=== PATIENT | male | born 1970 | race Caucasian/White ===

== ENCOUNTER 2019-05-12 22:38 | Emergency (ER) | payer MEDICAID ==
[~2019-05-12] VITALS: Ht 188 cm; Wt 104.5 kg
[~2019-05-12 22:38] MED LIST: FLAGYL500 MG PO; FREESTYLE PREC1 EAC5 MC; GLUCOSE TEST ST1 DEV MC; HUMALOG100 U/ML; INSLANT; INSULIN SYRING1 EA10 SQ; LANCETS MC; LANTUS100 U/ML SQ; LEVAQUIN 750MG750 M1 PO; NORCO 325 MG-51 TAB PO; NOVLOG SQ
[2019-05-12 22:45] VITALS: TEMP 97.8
[2019-05-12 23:01] LABS: BASO # 0.1 (0.0-0.2); BASO % 0.8 % (0.0-2.0); EOS # 0.1 (0.0-0.7); EOS % 1.5 % (0-4.0); GRAN # 4.4 (1.4-6.5); GRAN % 49.5 % (42.2-75.2); HEMATOCRIT 40.9 % (42.0-52.0); HEMOGLOBIN 14.2 g/dl (13.5-18.0); LYMPH # 3.4 (1.2-3.4); MEAN CELL VOLUME 86 fl (80.0-100.0); MEAN CORPUSCULAR HEMOGLOBIN 30 pg (27.0-31.0); MEAN CORPUSCULAR HGB CONC 35 g/dl (33.0-37.0); MEAN PLATELET VOLUME 10.1 fl (7.4-10.4); MONO # 0.9 (0.1-0.6); MONO % 9.9 % (1.7-9.3); PLATELET COUNT 254 K/mm3 (130-400); RED BLOOD COUNT 4.78 M/mm3 (4.20-5.60); REDCELL DISTRIBUTION WIDTH-CV 12.6 % (11.5-14.5)
[2019-05-12 23:14] LABS: ALANINE AMINOTRANSFERASE 15 U/L (21-72); ALBUMIN 3.6 gm/dL (3.5-5.0); ALKALINE PHOSPHATASE 127 U/L (50-136); ANION GAP 12 mmol/L (7-16); AST,SGOT 19 U/L (15-37); BILIRUBIN,TOTAL 0.8 mg/dL (0.0-1.0); BLOOD UREA NITROGEN 19 mg/dL (9-20); CALCIUM 8.4 mg/dL (8.4-10.2); CARBON DIOXIDE 22 mmol/L (22-30); CHLORIDE 100 mmol/L (98-107); CREATININE, serum 0.87 (0.66-1.25); POTASSIUM 4.3 mmol/L (3.4-5.0); SODIUM 134 mmol/L (137-145); TOTAL PROTEIN 6.5 gm/dL (6.4-8.2)
[2019-05-12 23:23] LABS: GLUCOSE 602 mg/dL (74-106)
[2019-05-12 23:26] LABS: TROPONIN-I < 0.012 ng/mL (0.000-0.035)
[2019-05-12 23:38] LABS: INR 0.9 (0.8-3.0); PROTHROMBIN TIME 10.1 SECONDS (9.7-12.8)
[2019-05-12 23:41] LABS: PARTIAL THROMBOPLASTIN TIME 27.3 SECONDS (26.0-37.0)
[2019-05-13 02:47] VITALS: BP 111/64; PULSE 87
== END 2019-05-13 03:15 | disposition short-term general hospital (02) ==
LOC: COL.ER 22:38
PROVIDERS: Emergency Medicine
DX: R07.89 Other chest pain (principal); E11.9 Type 2 diabetes mellitus without complications; I25.10 Atherosclerotic heart disease of native coronary artery without angina pectoris; F17.210 Nicotine dependence, cigarettes, uncomplicated; Z79.4 Long term (current) use of insulin
CPT/HCPCS: J1644; J1815; J2270; J7030; Q9967

== ENCOUNTER → 2019-06-06 | Outpatient (CLI) | payer MEDICAID | LOC: COL.RAD 12:50 | DX: S43.401A Unspecified sprain of right shoulder joint, initial encounter (principal); M19.011 Primary osteoarthritis, right shoulder; M89.311 Hypertrophy of bone, right shoulder | CPT/HCPCS: Q9967 ==

== ENCOUNTER → 2019-06-16 | Outpatient (CLI) | payer MEDICAID | LOC: COL.RAD 13:31 | DX: M25.511 Pain in right shoulder (principal) | CPT/HCPCS: J3301; Q9967 ==

== ENCOUNTER 2019-08-10 07:07 | Day surgery (SDC) | payer MEDICAID ==
[~2019-08-10] VITALS: Ht 188 cm; Wt 114.0 kg
[2019-08-10] VITALS (24 sets, daily range): BP systolic 94–136; BP diastolic 52–91; PULSE 61–89; TEMP 97.5–98.2
[2019-08-10 07:42] LABS: HEMATOCRIT 43.6 % (42.0-52.0); HEMOGLOBIN 15.1 g/dl (13.5-18.0); MEAN CELL VOLUME 85 fl (80.0-100.0); MEAN CORPUSCULAR HEMOGLOBIN 29 pg (27.0-31.0); MEAN CORPUSCULAR HGB CONC 35 g/dl (33.0-37.0); MEAN PLATELET VOLUME 9.6 fl (7.4-10.4); PLATELET COUNT 240 K/mm3 (130-400); RED BLOOD COUNT 5.15 M/mm3 (4.20-5.60); REDCELL DISTRIBUTION WIDTH-CV 12.4 % (11.5-14.5)
[2019-08-10] MEDS ORDERED: INSULIN HUMA100 U/ML SQ (07:47)
[2019-08-10 07:51] LABS: INR 0.9 (0.8-3.0)
[2019-08-10] MEDS ORDERED: ASPI325T6 PO (07:51)
[2019-08-10] MEDS ORDERED: NORCO 325 MG-51 TAB PO (07:52)
[2019-08-10 07:53] LABS: CALCIUM 8.8 mg/dL (8.4-10.2); CREATININE, serum 0.87 (0.66-1.25); POTASSIUM 3.9 mmol/L (3.4-5.0)
[2019-08-10] MEDS ORDERED: MOBIC 7.5MG7.5 MG PO (07:53)
[2019-08-10] MEDS ORDERED: LANTUS100 U/ML SQ (07:53)
[2019-08-10] MEDS ORDERED: DEPO-TESTOS200 MG/M1 IM (07:54)
--- NOTE | 2019-08-10 09:13 | NUR ---
ALL MEDICATIONS GIVEN VORB WITH MD. SEE MERGE FOR ALL MEDICATION ADMIN TIMES. SEE MERGE FOR ALL RASS ASSESSMENTS DURING AND POST PROCEDURE. POSITIVE BARBEAU'S TEST IN THE RIGHT WRIST, RADIAL PULSE +2.
--- NOTE | 2019-08-10 10:45 | NUR ---
Pt returned to EU 11 per bed s/p heart cath. Pt is waiting for ICU bed and will transfer when available.
--- NOTE | 2019-08-10 10:55 | NUR ---
Patient transferred back to room 11 until ICU bed 2 is clean. Patient transported with Z[employer] for monitoring. Patient is alert and oriented. Denies any pain at this time. Patient hooked up to monitoring equipment and portable telemetry box for ICU monitoring. JAMILA Perez at bedside. Visualized TR band at this time. TR band remains in place with 12 ml of air in the band. Denies numbness or tingling. Cap refill <3 seconds. No oozing or hematoma noted at this time. Site around TR band soft and nontender. Discussed wrist restrictions with patient and family. No other questions at this time. Bed in locked and lowest position, call light within reach.
--- NOTE | 2019-08-10 11:15 | NUR ---
Family reporting patient is having chest pain. This RN and Ana RN to room. Patient reports he is having "8/10 chest pain". Dr. Bui informed. EKG obtained. Nitro gtt initiated at 10 mcg/min per MD order. Patient reports pain is "better, 4/10".
--- NOTE | 2019-08-10 11:30 | NUR ---
Pt reports CP decreased to 4/10.
--- NOTE | 2019-08-10 12:30 | NUR ---
Report to Gianna Loredo RN who assumed care at this time. Pt transfered to ICU 2 per w/c. Family with pt.
--- NOTE | 2019-08-10 17:45 | NUR ---
TR BAND REMOVED. SITE CLEANSED WITH CHLOROPREP, 2X2 GAUZE APPLIED TO SITE, TEGADERM COVERING. NO DRAINAGE AT PRESENT TIME.
[2019-08-11] VITALS: BP 98/54; PULSE 62; PULSE 63; TEMP 98.2
--- NOTE | 2019-08-11 02:27 | NUR ---
PT RESTING IN BED, VSS AT THIS TIME, PT C/O 7/10 PAIN IN RIGHT SHOULDER, PAIN MEDS GIVEN AND PT ABLE TO GET SLEEP. RIGHT RADIAL SITE C/D/I, SOFT AND NONTENDER. PT REMAINS ON NTG, IVF D/C'ED. WILL CONTINUE TO MONITOR PT STATUS AND UPDATE PROVIDERS NEEDED.
[2019-08-11 03:23] VITALS: BP 104/68; PULSE 95; TEMP 97.6
[2019-08-11 04:00] VITALS: BP 104/68; PULSE 95; TEMP 97.6
[2019-08-11 06:01] LABS: BASO # 0.1 (0.0-0.2); BASO % 0.8 % (0.0-2.0); EOS # 0.1 (0.0-0.7); EOS % 1.2 % (0-4.0); GRAN # 6.4 (1.4-6.5); GRAN % 60.2 % (42.2-75.2); HEMATOCRIT 39.6 % (42.0-52.0); HEMOGLOBIN 13.5 g/dl (13.5-18.0); LYMPH # 2.9 (1.2-3.4); LYMPH % 26.9 % (20.0-51.0); MEAN CELL VOLUME 85 fl (80.0-100.0); MEAN CORPUSCULAR HEMOGLOBIN 29 pg (27.0-31.0); MEAN CORPUSCULAR HGB CONC 34 g/dl (33.0-37.0); MEAN PLATELET VOLUME 9.7 fl (7.4-10.4); MONO # 1.1 (0.1-0.6); MONO % 10.7 % (1.7-9.3); PLATELET COUNT 238 K/mm3 (130-400); RED BLOOD COUNT 4.64 M/mm3 (4.20-5.60); REDCELL DISTRIBUTION WIDTH-CV 12.5 % (11.5-14.5)
[2019-08-11 06:19] LABS: CALCIUM 8.4 mg/dL (8.4-10.2); CREATININE, serum 0.9 (0.66-1.25); POTASSIUM 4.2 mmol/L (3.4-5.0)
--- NOTE | 2019-08-11 07:10 | NUR ---
report received from JAMILA Gregorio.
[2019-08-11 07:56] VITALS: BP 107/73; PULSE 67; TEMP 97.5
[2019-08-11 08:00] VITALS: BP 107/73; PULSE 67; TEMP 97.5
--- NOTE | 2019-08-11 08:00 | NUR ---
Assessment completed. Pt in bed, awake. Remains on Nitroglycerin gtt. Denies any chest pain. Nitroglycerin gtt titrated down. VSS. Right radial dressing C/D/I. No signs of hematoma. Discussed plan of care r/t medications, accuchecks and possible discharge this morning. Pt states his BP is usually lower in the hospital, but stops BP meds when he goes home. Talked about importance of taking medications dr prescribes and follow up appts. Pt verbalized understanding. CAll light in reach.
--- NOTE | 2019-08-11 08:15 | NUR ---
Called Dr Stein nurseKelly. Pt requesting Nicotine patch. Will notify Dr osman.
[2019-08-11] MEDS ORDERED: IMDUR 30MG30 MG/TAB PO (09:05)
[2019-08-11] MEDS ORDERED: LIPITOR 80MG80 MG PO (09:05)
[2019-08-11] MEDS ORDERED: BRILINTA90 MG PO (09:05)
[2019-08-11] MEDS ORDERED: NORVASC 5MG5 MG/TAB PO (09:06)
[2019-08-11] MEDS ORDERED: ASPIRIN E.C. 8181 MG PO (09:07)
--- NOTE | 2019-08-11 09:46 | NUR ---
Pharmacist at bedside discussing new medications with pt.
--- NOTE | 2019-08-11 09:55 | NUR ---
Discussed discharge paperwork, medications, education and follow up appointments with pt. Pt verbalized understanding. Pt signed discharge forms. left FA IV discontinued, catheter intact. Pt discharged from ICU and walked to [facility] area waiting for friend picking him up.
== END 2019-08-11 09:58 | disposition home or self-care (01) ==
LOC: COL.CAR 07:07 → ICU 12:37 → COL.CAR 08-11 09:58
PROVIDERS: Internal Medicine Cardiovascular Disease; Nurse Practitioner
DX: I25.10 Atherosclerotic heart disease of native coronary artery without angina pectoris (principal); R94.39 Abnormal result of other cardiovascular function study; E78.5 Hyperlipidemia, unspecified; F17.210 Nicotine dependence, cigarettes, uncomplicated; E11.9 Type 2 diabetes mellitus without complications; I24.9 Acute ischemic heart disease, unspecified; Z88.6 Allergy status to analgesic agent; Z88.0 Allergy status to penicillin; Z88.2 Allergy status to sulfonamides; Z95.5 Presence of coronary angioplasty implant and graft; Z79.82 Long term (current) use of aspirin; Z79.4 Long term (current) use of insulin; Z79.52 Long term (current) use of systemic steroids; Z82.49 Family history of ischemic heart disease and other diseases of the circulatory system
CPT/HCPCS: OP; C9600; C9601; J1644; J1815; J2250; J3010; Q9967

== ENCOUNTER 2019-09-12 12:36 | Emergency (ER) | payer MEDICAID ==
[~2019-09-12] VITALS: Ht 188 cm; Wt 118.2 kg
[~2019-09-12 12:36] MED LIST changes: +ASPI325T6 PO; +ASPIRIN E.C. 8181 MG PO; +BRILINTA90 MG PO; +DEPO-TESTOS200 MG/M1 IM; +IMDUR 30MG30 MG/TAB PO; +INSULIN HUMA100 U/ML SQ; +LIPITOR 80MG80 MG PO; +MOBIC 7.5MG7.5 MG PO; +NORVASC 5MG5 MG/TAB PO
[2019-09-12 12:58] VITALS: TEMP 98.7
[2019-09-12 15:10] LABS: BASO # 0.1 (0.0-0.2); BASO % 0.7 % (0.0-2.0); EOS # 0.1 (0.0-0.7); EOS % 1.3 % (0-4.0); GRAN # 6.4 (1.4-6.5); GRAN % 63.1 % (42.2-75.2); HEMATOCRIT 43.7 % (42.0-52.0); LYMPH # 2.4 (1.2-3.4); LYMPH % 23.6 % (20.0-51.0); MEAN CELL VOLUME 87 fl (80.0-100.0); MEAN CORPUSCULAR HEMOGLOBIN 30 pg (27.0-31.0); MEAN CORPUSCULAR HGB CONC 34 g/dl (33.0-37.0); MEAN PLATELET VOLUME 10.1 fl (7.4-10.4); MONO # 1.1 (0.1-0.6); MONO % 11.1 % (1.7-9.3); PLATELET COUNT 258 K/mm3 (130-400); RED BLOOD COUNT 5.04 M/mm3 (4.20-5.60); REDCELL DISTRIBUTION WIDTH-CV 13.2 % (11.5-14.5)
[2019-09-12 15:18] LABS: INR 0.9 (0.8-3.0); PROTHROMBIN TIME 10.2 SECONDS (9.7-12.8)
[2019-09-12 15:20] LABS: PARTIAL THROMBOPLASTIN TIME 29.3 SECONDS (26.0-37.0)
[2019-09-12 15:21] LABS: ALANINE AMINOTRANSFERASE 34 U/L (21-72); ALBUMIN 4.1 gm/dL (3.5-5.0); ALKALINE PHOSPHATASE 128 U/L (50-136); ANION GAP 10 mmol/L (7-16); AST,SGOT 29 U/L (15-37); BILIRUBIN,TOTAL 0.9 mg/dL (0.0-1.0); BLOOD UREA NITROGEN 15 mg/dL (9-20); CARBON DIOXIDE 25 mmol/L (22-30); CHLORIDE 105 mmol/L (98-107); CREATINE KINASE 297 U/L (55-170); CREATININE, serum 0.91 (0.66-1.25); GLUCOSE 304 mg/dL (74-106); POTASSIUM 4.4 mmol/L (3.4-5.0); SODIUM 140 mmol/L (137-145); TOTAL PROTEIN 7.1 gm/dL (6.4-8.2)
[2019-09-12 15:35] LABS: TROPONIN-I < 0.012 ng/mL (0.000-0.035)
[2019-09-12 18:28] VITALS: BP 125/70; PULSE 75
== END 2019-09-12 18:29 | disposition home or self-care (01) ==
LOC: COL.ER 12:36
PROVIDERS: Emergency Medicine
DX: R07.89 Other chest pain (principal); E11.9 Type 2 diabetes mellitus without complications; E78.5 Hyperlipidemia, unspecified; Z95.5 Presence of coronary angioplasty implant and graft; Z90.89 Acquired absence of other organs; Z79.82 Long term (current) use of aspirin; Z79.02 Long term (current) use of antithrombotics/antiplatelets; Z79.4 Long term (current) use of insulin
CPT/HCPCS: J1885; J7030

== ENCOUNTER → 2020-01-08 | Outpatient (CLI) | payer MEDICAID | LOC: COL.RAD 14:25 | DX: M47.22 Other spondylosis with radiculopathy, cervical region (principal); M25.78 Osteophyte, vertebrae ==

== ENCOUNTER 2020-09-19 06:59 | Day surgery (SDC) | payer MEDICAID ==
[~2020-09-19] VITALS: Ht 188 cm; Wt 115.6 kg
[~2020-09-19 06:59] MED LIST changes: +CANA100T PO; +NEURONTIN300 MG/CAP PO; +NITROSTAT0.4 MG/TAB SL; +PEPCID 20MG TAB20 MG PO; +PROVENTIL0.09 MG/A1 IH; +STOOL SOFTENER100 M2 PO; +TOPROL XL 25MG25 MG PO; +WELLBUTRIN XL150 MG PO
[2020-09-19] MEDS ORDERED: CELEXA 20MG20 MG/TAB PO (07:43)
[2020-09-19] MEDS ORDERED: CLARITIN 1010 MG/TAB PO (07:43)
[2020-09-19] MEDS ORDERED: VIAGRA 25MG TAB25 MG PO (07:43)
[2020-09-19] MEDS ORDERED: DULCOLAX TAB5 MG PO (07:44)
[2020-09-19] MEDS ORDERED: FLONASE NASAL S16 GM NS (07:45)
[2020-09-19] MEDS ORDERED: ZANAFLEX2 MG PO (07:45)
[2020-09-19] MEDS ORDERED: ZESTRIL 10MG10 MG PO (07:46)
[2020-09-19] MEDS ORDERED: PROTONIX20 MG PO (07:46)
[2020-09-19] MEDS ORDERED: FARXIGA10 PO (07:46)
[2020-09-19 07:47] VITALS: BP 119/68; PULSE 86; TEMP 98.5
[2020-09-19] MEDS ORDERED: PERCOCET 325 MG1 TA3 PO (07:47)
--- NOTE | 2020-09-19 07:47 | NUR ---
Patient's blood glucose pre-procedure is 230. This is reported to Logan Bales CRNA. No further orders are received.
[2020-09-19 09:20] VITALS: BP 129/81; PULSE 80
--- NOTE | 2020-09-19 09:20 | NUR ---
Pt arrived back to room via cart with Ary Rn, Diamond. Report received at chairside. Pt was able to ambulate to chair easily with 2 SBA. Pt awake, alert, and oriented. Pt denies nausea or pain, but is very hungry. Brought pop, crackers, pudding, and ice cream per his request.
[2020-09-19 09:45] VITALS: BP 137/76; PULSE 74
--- NOTE | 2020-09-19 09:45 | NUR ---
Pt sitting comfortably in chair and states that he is ready to go home.
[2020-09-19 09:50] VITALS: BP 121/79; PULSE 76
--- NOTE | 2020-09-19 09:50 | NUR ---
Pt meets criteria for discharge. Reviewed discharge information with patient and . Reviewed educational packet including when to call the dr or go to the ED. No further questions at this time.
== END 2020-09-19 10:00 ==
LOC: SDCO 06:59
DX: Z12.11 Encounter for screening for malignant neoplasm of colon (principal); I25.10 Atherosclerotic heart disease of native coronary artery without angina pectoris; F17.210 Nicotine dependence, cigarettes, uncomplicated; F41.1 Generalized anxiety disorder; E11.42 Type 2 diabetes mellitus with diabetic polyneuropathy; K21.9 Gastro-esophageal reflux disease without esophagitis; J30.9 Allergic rhinitis, unspecified; F11.20 Opioid dependence, uncomplicated; M50.30 Other cervical disc degeneration, unspecified cervical region; I25.2 Old myocardial infarction; I50.9 Heart failure, unspecified; E78.5 Hyperlipidemia, unspecified; J44.9 Chronic obstructive pulmonary disease, unspecified; M19.90 Unspecified osteoarthritis, unspecified site; Z79.4 Long term (current) use of insulin; Z79.82 Long term (current) use of aspirin; Z88.0 Allergy status to penicillin; Z88.2 Allergy status to sulfonamides
CPT/HCPCS: J2704; J7030

== ENCOUNTER 2021-01-03 12:43 | Day surgery (SDC) | payer MEDICAID ==
[~2021-01-03] VITALS: Ht 188 cm; Wt 115.3 kg
[2021-01-03] VITALS (243 sets, daily range): BP systolic 116–154; BP diastolic 45–89; PULSE 77–106; TEMP 98.4–98.9; O2SAT 76–100
[~2021-01-03 12:43] MED LIST changes: +CELEXA 20MG20 MG/TAB PO; +CLARITIN 1010 MG/TAB PO; +DULCOLAX TAB5 MG PO; +FARXIGA10 PO; +FLONASE NASAL S16 GM NS; +PERCOCET 325 MG1 TA3 PO; +PROTONIX20 MG PO; +VIAGRA 25MG TAB25 MG PO; +ZANAFLEX2 MG PO; +ZESTRIL 10MG10 MG PO
[2021-01-03 13:17] LABS: HEMOGLOBIN 12.8 g/dl (13.5-18.0); MEAN CELL VOLUME 89 fl (80.0-100.0); MEAN CORPUSCULAR HEMOGLOBIN 29 pg (27.0-31.0); MEAN CORPUSCULAR HGB CONC 33 g/dl (33.0-37.0); MEAN PLATELET VOLUME 9.8 fl (7.4-10.4); PLATELET COUNT 247 K/mm3 (130-400); RED BLOOD COUNT 4.39 M/mm3 (4.20-5.60); REDCELL DISTRIBUTION WIDTH-CV 12.1 % (11.5-14.5)
[2021-01-03 13:24] LABS: PROTHROMBIN TIME 10.6 SECONDS (9.7-12.8)
[2021-01-03 13:27] LABS: CREATININE, serum 0.84 (0.66-1.25); PARTIAL THROMBOPLASTIN TIME 30.7 SECONDS (26.0-37.0); POTASSIUM 4.7 mmol/L (3.4-5.0)
[2021-01-03] MEDS ORDERED: CLARITIN 1010 MG/TAB PO (13:30)
[2021-01-03] MEDS ORDERED: FARXIGA10 PO (13:36)
[2021-01-03] MEDS ORDERED: LEVITRA20 MG PO (13:37)
[2021-01-03] MEDS ORDERED: PEPCID 20MG TAB20 MG PO (13:38)
[2021-01-03] MEDS ORDERED: NITROSTAT0.4 MG/TAB SL (13:40)
[2021-01-03] MEDS ORDERED: TRULICITY0.75 MG/0. SQ (13:40)
--- NOTE | 2021-01-03 13:53 | NUR ---
SEE MERGE FOR ALL MEDICATION ADMINISTRATION TIMES, INTRA AND POST SEDATION ASSESSMENT
--- NOTE | 2021-01-03 15:00 | NUR ---
Pt's belongings were collected and taken to ICU by JAMILA Fulton. Pt will be admitted following heart cath.
--- NOTE | 2021-01-03 15:10 | NUR ---
SPOKE TO JAMILA GREER REGARDING CARDIAC CATHETERIZATION PROCEDURE. RECEIVED REPORT.
--- NOTE | 2021-01-03 15:20 | NUR ---
PATIENT ARRIVED VIA FARM MACHINE TENDER STAFF TO ICU 4. NOTED TO BE LETHARGIC, BUT ORIENTED X4. HOOKED UP TO MONITOR AND ADMISSION VITAL SIGNS TAKEN. ASSESSMENT COMPLETED. TR BAND INTACT, NO DRAINAGE OR HEMATOMA.
--- NOTE | 2021-01-03 15:57 | NUR ---
SPOKE TO TELE ICU REGARDING PATIENT'S STATUS AND UPDATE ON POST OP.
--- NOTE | 2021-01-03 17:34 | NUR ---
SPOKE TO DR PATTERSON REGARDING PATIENT'S WISHES TO LEAVE AGAINST MEDICAL ADVICE. PATIENT HAS EXPRESSED CONTINUED FRUSTRATION SINCE ARRIVING TO THE UNIT, "IT WAS ONLY SUPPOSED TO BE 4 HOURS. THEY LIED TO ME. I'M NOT STAYING THE NIGHT." CONVERSATION ABOUT PATIENT'S FAMILY COMING TO VISIT OVERHEARD. JAMILA JORDAN APPROACHED PATIENT AND NOTIFIED OF HOSPITAL POLICY REGARDING NO VISITORS IN THE UNIT. PATIENT EXPRESSED FRUSTRATION AND STATED, "GET ME MY PAPERWORK. I'M NOT STAYING HERE." CHEYANNE CALLED AND NOTIFIED OF ABOVE SITUATION AND REQUESTED DR BRITTON SPEAK WITH PATIENT. CHEYANNE REPLIED, "I'VE EXPLAINED IN DEPTH ALL OF THIS ALREADY. I HAVE OTHER PATIENTS AND I'M NOT ABLE TO COME SEE HIM. IF HE WANTS TO LEAVE AMA, THEN HE CAN GO ALTHOUGH IT IS NOT ADVISED." NURSED ASKED ABOUT TR BAND REMOVAL. CHEYANNE REPLIED, "ENCOURAGED TO STAY, BUT HE COULD HAVE TAKEN OFF TR BAND ONE HOUR AFTER SURGERY." JAMILA JORDAN ASKED IF PATIENT SHOULD STAY ONE MORE HOUR AND CHEYANNE SAID YES.
--- NOTE | 2021-01-03 17:50 | NUR ---
This nurse has been working with primary nurse Sagrario regarding pt frustrations about staying. Spoke with nurse supervisor remelt Clemencia to verify situation, advised to educate pt thoroughly about what to do if decision is made to leave. Upon entering the room pt apoligized stating "I'm sorry I only get to see my grandbabies every 3 months". Sagrario and this nurse reported to pt that we understand the furstration that is felt by pt although "we are focused on your safety but if you are intent on leaving we would like to discuss another option." Sagrario state to pt that "over the next hour we are going to slowly release air out of the TR band. If there is any bleeding or bruising/ hematoma noted than we will want to put more air in." Pt stated "well I'll just stay because my wont let me hear the end of it if I dont." The pt and this nurse came to an agreement that if family came to ED entrance that we would assist pt via wheelchair to entrance to see them for a brief perioid of time although they are advised to wear a mask as well as the pt. Pt agreeable and will call family to work situation out. Pt dinner tray removed with another sandwich, which pt ordered, is on the way.
--- NOTE | 2021-01-03 17:51 | NUR ---
SPOKE TO PATIENT AND EXPLAINED IMPORTANCE OF NEEDING TO MONITOR TR BAND AND BLEEDING RISKS OVERNIGHT. PATIENT AGREEABLE TO STAY. COMPROMISED TO ALLOW PATIENT TO SEE FAMILY OUTSIDE ER ENTRANCE TO SAY GOODBYE AND TO STAY THE NIGHT.
--- NOTE | 2021-01-03 18:00 | NUR ---
Arrived into pts room to check on status of family visit. Pt apologized again for getting upset. Once again this nurse verbalized understanding for "being upset when plans machine turner to something other than what you originally thought". Pt reported that family will not be coming to visit. Assisted pt to gather wanted belongings from coat in the closet.
--- NOTE | 2021-01-03 18:10 | NUR ---
Dr. Medina at the bedside to speak with the pt. Called by JAMILA Kelly, to update the pt chart.
--- NOTE | 2021-01-03 19:23 | NUR ---
REPORT GIVEN TO JAMILA ROSARIO.
--- NOTE | 2021-01-03 20:00 | NUR ---
Assessment complete. Pt is AXO X3, states he has pain to his RLE rated at an 8/10. Breathing is even and unlabored on room air. TR band to RR site is CDI. 2cc of air released at this time without s/sx's of complications. Pt reports he has an ulcer to his R heel. There is a dressing and walking boot in place that are CDI, so this ulcer was not visualized. LH IV infusing free of complications. Pt is resting quietly in the bed watching TV at this time and he denies further needs. Call light within reach.
[2021-01-04] VITALS (247 sets, daily range): BP systolic 128–138; BP diastolic 78–81; PULSE 69–83; TEMP 98.7–98.9; O2SAT 82–100
--- NOTE | 2021-01-04 07:23 | NUR ---
Bedside shift report given to JAMILA Diaz.
--- NOTE | 2021-01-04 08:00 | NUR ---
REPORT RECEIVED FROM JAMILA ROSARIO. PATIENT DROWSY, BUT WAKES TO VERBAL STIMULI, ANSWERS QUESTIONS APPROPRIATELY. PATIENT TR BAND TAKEN OFF AND BANDAID PLACED OVER PUNCTURE SITE. PATIENT ASKS WHEN THE DOCTOR WILL COME AROUND TO DISCHARGE HIM. I RESPOND WITH I AM NOT SURE BUT PLAN ON LEAVING CLOSER TO NOON, WHICH IS WHEN MOST PEOPLE IN HIS SITUATION GET TO GO HOME.
--- NOTE | 2021-01-04 10:40 | NUR ---
PATIENT LEAVES AMA AT THIS TIME. MULTIPLE ATTEMPTS WERE MADE TO CALL DR. CHOE ON 3 DIFFERENT NUMBERS TO NOTIFY HIM. DR. CHOE DID NOT ANSWER THE PHONE. PATIENT IS GIVEN POST CATH EDUCATION AND SIGNS THE AMA PAPERWORK. PATIENT IS ESCORTED TO ED ENTRANCE AND AMBULATES OUT.
== END 2021-01-04 10:40 | disposition home or self-care (01) ==
LOC: COL.CAR → ICU 15:33 → COL.CAR 01-04 10:40
PROVIDERS: Internal Medicine Interventional Cardiology
DX: I25.10 Atherosclerotic heart disease of native coronary artery without angina pectoris (principal); T82.855A Stenosis of coronary artery stent, initial encounter; I35.1 Nonrheumatic aortic (valve) insufficiency; I77.819 Aortic ectasia, unspecified site; F17.210 Nicotine dependence, cigarettes, uncomplicated; Z79.82 Long term (current) use of aspirin; Z79.899 Other long term (current) drug therapy; Z79.02 Long term (current) use of antithrombotics/antiplatelets; Z88.2 Allergy status to sulfonamides; Z88.0 Allergy status to penicillin; Z95.5 Presence of coronary angioplasty implant and graft
CPT/HCPCS: OP; C1725; C1769; C1887; J0583; J1644; J1815; J2250; J3010